=== PATIENT | male | born 1985 | race American Indian/Alaskan Native ===

== ENCOUNTER 2017-09-26 06:41 | Emergency (ER) | payer OTHER ==
[2017-09-26] MEDS ORDERED: Lidocaine 1% with EPINEPHrine 1:100,000 20 ML MDV ONE (06:45)
[2017-09-26] MEDS ORDERED: Lidocaine 1% with EPINEPHrine 1:100,000 20 ML MDV INJECT ONE (06:46)
--- NOTE | 2017-09-26 07:12 | EDM.PDOC ---
ED HPI GENERAL MEDICAL PROBLEM - General Stated Complaint: RIGHT FOOT INJURY Time Seen by Provider: 09/26/17 06:50 Source of Information: Reports: Patient History Limitations: Reports: No Limitations - History of Present Illness INITIAL COMMENTS - FREE TEXT/NARRATIVE: 31-year-old male who is extremely obese presents to the ED with a varicosity that has broken on his left medial ankle. It is squirting blood due to its high pressure across the room. He states he started an hour ago. His entire shoe lower extremity and pincer's blood soak. Trileptal blood trail down the hallway walking into the ED. This is never happened to him before. Onset: Today Onset Date: 09/26/17 Onset Time: 06:00 Duration: Minutes: Location: Reports: Lower Extremity, Right Quality: Reports: Other Severity: Severe (No pain severe squirting) Improves with: Reports: None ( due to high pressure varicosity bleed.) Worsens with: Reports: Other Context: Denies: Activity, Exercise (Standing and walking), Lifting, Sick Contact, Trauma, Other Associated Symptoms: Reports: No Other Symptoms Treatments BISQUE BRUSHER: Reports: Other (see below) (None) - Related Data Allergies Allergy/AdvReac Type Severity Reaction Status Date / Time vancomycin Allergy Rash Verified 09/26/17 07:01 Home Meds: Home Meds . [No Known Home Meds] 09/26/17 [History] Past Medical History - Past Health History Medical/Surgical History: Denies Medical/Surgical History Other HEENT History: Possible sinus infections in past Other Gastrointestinal History: slightly loose stools last week. Endocrine/Metabolic History: Reports: Obesity/BMI 30+ - Past Surgical History Musculoskeletal Surgical History: Reports: ORIF Other Musculoskeletal Surgeries/Procedures:: Right ankle ORIF from ankle fracture, possible pins in ankle Social & Family History - Family History Family Medical History: Noncontributory Cardiac: Reports: [place] Other Cardiac Family History: mother had [place] Endocrine/Metabolic: Reports: Diabetes, type II Other Endocrine/Metabolic Family History: mother has DM - Tobacco Use Smoking Status *Q: Current Some Day Smoker Years of Tobacco use: 15 Packs/Tins Daily: 0.1 - Caffeine Use Caffeine Use: Reports: None Caffeine Use Comment: maybe up to 4 caffeiene drinks per day. - Recreational Drug Use Recreational Drug Use: No - Living Situation & Occupation Living situation: Reports: Single Occupation: Unemployed Review of Systems - Review of Systems Review Of Systems: See Below Constitutional: Reports: No Symptoms Eyes: Reports: No Symptoms Ears: Reports: No Symptoms Nose: Reports: No Symptoms Mouth/Throat: Reports: No Symptoms Respiratory: Reports: No Symptoms Cardiovascular: Reports: No Symptoms GI/Abdominal: Reports: No Symptoms Genitourinary: Reports: No Symptoms Musculoskeletal: Reports: Back Pain, Joint Pain (Knees hips.), Other (Severe varicosities both lower extremities due to chronic edema.) Skin: Reports: Other (Multiple varicosities lower extremity) ED EXAM, GENERAL - Physical Exam Exam: See Below Exam Limited By: No Limitations General Appearance: Alert, WD/WN, Anxious, Mild Distress Extremities: Other (Patient has a varicosity on the medial aspect of his left ankle just above the lateral malleolus and likely connected to the greater saphenous vein that is spurting blood under high pressure. Estimated blood loss is about a liter. Firm pressure on the greater saphenous vein above this stem the flow blood from the) Psychiatric: Normal Affect ( ruptured varicosity.), Normal Mood Skin Exam: Warm, Dry, Intact, Normal Color, No Rash Course - Vital Signs Last Recorded V/S: Last Vital Signs Temp 36.8 C 09/26/17 06:41 Pulse 96 09/26/17 06:41 Resp 16 09/26/17 06:41 BP 141/76 H 09/26/17 06:41 Pulse Ox 95 09/26/17 06:41 - Orders/Labs/Meds Meds: Medications Discontinued Medications Generic Name Dose Route Start Last Admin Trade Name Anita PRN Reason Stop Dose Admin Lidocaine/Epinephrine 20 ml 09/26/17 06:46 Xylocaine 1% With Epinephrine 1:100,000 INJECT 09/26/17 06:47 ONETIME ONE Lidocaine/Epinephrine Confirm 09/26/17 06:45 Xylocaine 1% With Epinephrine 1:100,000 Administered 09/26/17 06:46 Dose 20 ml .ROUTE .STK-MED ONE Departure - Departure Time of Disposition: 07:14 Disposition: Home, Self-Care 01 Condition: Fair Clinical Impression: Asymptomatic ruptured varicose vein of right lower extremity - Discharge Information *PRESCRIPTION DRUG MONITORING PROGRAM REVIEWED*: Not Applicable *COPY OF PRESCRIPTION DRUG MONITORING REPORT IN PATIENT COLLEEN: Not Applicable Instructions: Varicose Veins Referrals: PCP,None [Primary Care Provider] - Additional Instructions: Evaluation in the emergency room this morning in regards to ruptured varicose vein medial aspect of your right ankle. This vein is under super high pressure and squirted blood from the wound. The area was anesthetized with 1% lidocaine and epinephrine. 9 separate sutures and utilized to tie off the vein and provide control of the blood loss. Need to stay off the leg is much as possible today to let the clot form up. Elevate the leg above heart height height ideally most of the day. May apply ice pack to the area for one half hour out of every 4 hours as well. Displaced are dissolvable and they will dissolve on their own over the next 7-10 days. May apply topical antibiotic such as bacitracin to the area once a day after cleansing the area. Of course return to the ED if further bleeding occurs. ED LACERATION PROCEDURES - Laceration/Wound Repair Right Lower Leg Lac/wound length in cm: 0.5 (Ruptured varicose vein medial aspect of rt ankle.) Appearance: Subcutaneous, Clean Distal NVT: Neuro & Vascular Intact Local Anesthesia - Lidocaine (Xylocaine): 1% with EPI Local Anesthetic Volume: Other (9 mL) Suture Size: 3-0 # of Sutures: 9 (Essentially the varicosity was oversewn with deep Vicryl sutures to provide hemostasis. Crisscross pattern was utilized to bring the bleeding under control.) Repaired with: Vicryl
[2017-09-26 07:52] VITALS: BP 121/67
== END 2017-09-26 07:49 | disposition home or self-care (01) ==
LOC: JD.ED 06:41
DX: I83.91 Asymptomatic varicose veins of right lower extremity (principal); F17.210 Nicotine dependence, cigarettes, uncomplicated; Z88.1 Allergy status to other antibiotic agents
CPT/HCPCS: 12001; 99283-25

== ENCOUNTER 2017-11-24 19:52 | Emergency (ER) | payer OTHER ==
[2017-11-24 20:04] VITALS: BP 141/70
[2017-11-24] MEDS ORDERED: Doxycycline 100 MG Cap PO ONE (20:43)
--- NOTE | 2017-11-24 20:47 | EDM.PDOC ---
ED HPI GENERAL MEDICAL PROBLEM - General Chief Complaint: Lower Extremity Injury/Pain Stated Complaint: right leg infection Time Seen by Provider: 11/24/17 20:10 Source of Information: Reports: Patient, Old Records History Limitations: Reports: No Limitations - History of Present Illness INITIAL COMMENTS - FREE TEXT/NARRATIVE: 32-year-old male presents for evaluation and treatment of possible infection to the right medial lower leg. Patient was seen in the ER end of September for a varicose vein that had burst. Please that record for complete details. Seen by Dr. Guillaume and had 9 dissoluble sutures placed the area to control the bleeding. Patient reports he did not care for the wound. He is concerned it is now infected. About 2 weeks ago he was in [place] ER as he is concerned it was infected. Reports that they wash the wound but he is not on any antibiotics. He states that he is appreciated swelling, redness and bleeding from the area. There is a ulcerative moist area to the wound that he reports is expressing some. Material. He denies any constitutional symptoms such as fevers, chills, nausea or vomiting. No numbness or tingling to the leg distally. He is unsure if he has diabetes. Unsure if he has a history of MRSA. Location: Reports: Lower Extremity, Right ankle Pain Score (Numeric/FACES): 4 - Related Data Allergies Allergy/AdvReac Type Severity Reaction Status Date / Time vancomycin Allergy Rash Verified 11/24/17 20:04 Home Meds: Home Meds Doxycycline [Vibramycin] 100 mg PO BID #19 cap 11/24/17 [Rx] Past Medical History - Past Health History Medical/Surgical History: Denies Medical/Surgical History HEENT History: Reports: Impaired Vision Other HEENT History: Possible sinus infections in past Other Gastrointestinal History: slightly loose stools last week. Endocrine/Metabolic History: Reports: Obesity/BMI 30+ - Past Surgical History Musculoskeletal Surgical History: Reports: ORIF Other Musculoskeletal Surgeries/Procedures:: Right ankle ORIF from ankle fracture, possible pins in ankle Social & Family History - Family History Family Medical History: Noncontributory Cardiac: Reports: [place] Other Cardiac Family History: mother had [place] Endocrine/Metabolic: Reports: Diabetes, type II Other Endocrine/Metabolic Family History: mother has DM - Tobacco Use Smoking Status *Q: Former Smoker Used Tobacco, but Quit: Yes Month/Year Tobacco Last Used: 10 years ago - Caffeine Use Caffeine Use: Reports: Soda Caffeine Use Comment: maybe up to 4 caffeiene drinks per day. - Recreational Drug Use Recreational Drug Use: No - Living Situation & Occupation Living situation: Reports: Single Occupation: Unemployed Review of Systems - Review of Systems Review Of Systems: See Below Constitutional: Denies: Chills, Fever GI/Abdominal: Denies: Nausea, Vomiting Skin: Reports: Erythema (Right medial lower leg), Wound (Right medial lower leg) Neurological: Denies: Numbness, Tingling ED EXAM, GENERAL - Physical Exam Exam: See Below Exam Limited By: No Limitations General Appearance: Alert, WD/WN, No Apparent Distress, Obese Respiratory/Chest: No Respiratory Distress Cardiovascular: Other (peripheral pulses obscured by body habitus ) Extremities: Other (approximately 6cm in diameter area of purple discoloration wiht a 1 cm in diameter area of moist macerated tissue; no increased warmth, no surrounding erythema). No: Increased Warmth Neurological: Alert, Oriented, Normal Cognition Psychiatric: Normal Affect, Normal Mood Skin Exam: Warm, Dry, Normal Color, Wound/Incision (right medial lower leg) Course - Vital Signs Last Recorded V/S: Last Vital Signs Temp 98.6 F 11/24/17 20:01 Pulse 111 H 11/24/17 20:01 Resp 19 11/24/17 20:01 BP 141/70 H 11/24/17 20:01 Pulse Ox 99 11/24/17 20:01 - Orders/Labs/Meds Meds: Medications Discontinued Medications Generic Name Dose Route Start Last Admin Trade Name Henryq PRN Reason Stop Dose Admin Doxycycline Hyclate 100 mg 11/24/17 20:43 11/24/17 20:49 Vibramycin PO 11/24/17 20:44 100 mg ONETIME ONE Administration - Re-Assessments/Exams Free Text/Narrative Re-Assessment/Exam: 11/24/17 20:[address] Guillaume. Would likely infected. Culture obtained. Majority of wound likely from poor blood flow, body habitus and hematoma formation from previous wound. Will start on doxycycline. Close follow-up in the clinic. Discharge instructions as documented. Departure - Departure Time of Disposition: 20:44 Disposition: Home, Self-Care 01 Condition: Fair Clinical Impression: Cellulitis - Discharge Information *PRESCRIPTION DRUG MONITORING PROGRAM REVIEWED*: No *COPY OF PRESCRIPTION DRUG MONITORING REPORT IN PATIENT COLLEEN: No Prescriptions: Doxycycline [Vibramycin] 100 mg PO BID #19 cap Instructions: Cellulitis, Adult, [id number] Referrals: PCP,None [Primary Care Provider] - Sharla You MD [Physician] - Forms: ED Department Discharge Additional Instructions: Wash the wound with gentle soap and water twice a day. Recommend applying a topical antibacterial ointment such as bacitracin to the wound twice a day. Elevate the leg as much as you able to help with return blood flow. Follow-up with family medicine within 1 week for a recheck of your symptoms. Here in [place] recommend Dr. You at the [facility]. Call [phone] to schedule with her. Please return to the ER if your symptoms change or worsen.
== END 2017-11-24 20:55 | disposition home or self-care (01) ==
LOC: JD.ED 19:52
DX: L03.115 Cellulitis of right lower limb (principal); Z88.1 Allergy status to other antibiotic agents; Z87.891 Personal history of nicotine dependence
CPT/HCPCS: 87070; 99283; A9270